=== PATIENT | female | born 1955 | race African-American/Black ===

== ENCOUNTER → 2019-02-07 13:57 | Outpatient (CLI) | payer MEDICARE, SELFPAY ==
--- NOTE | 2019-02-07 14:05 | VDLE_ITS ---
Reason For Study: pain and swelling RIGHT LEFT GSV is normal. GSV is normal. CFV is compressible, spontaneous, phasic, CFV is compressible, spontaneous, phasic, competent and demonstrates normal competent, and demonstrates normal augmentation. augmentation. FV is compressible, spontaneous, phasic, FV is compressible, spontaneous, phasic, competent and demonstrates normal competent and demonstrates normal augmentation. augmentation. POP V is compressible, spontaneous, phasic, POP V is compressible, spontaneous, phasic, competent and demonstrates normal competent and demonstrates normal augmentation. augmentation. T/P Trunk is compressible. T/P Trunk is compressible. PTV is compressible. PTV is compressible. RT PerV is compressible. LT PerV is compressible. Procedure Exam performed in department. The exam was diagnostic. A preliminary report was called and/or faxed to Dr. Gillespie. Interpretation Summary Deep veins of the lower extremities are bilaterally patent and compressible segmentally. There is no evidence of deep vein thrombosis on either side. Valvular competence appears intact within the proximal deep venous systems bilaterally. The greater saphenous veins appear bilaterally patent and compressible segmentally. Ordering Physician: ADRIEL GILLESPIE Referring Physician: ADRIEL GILLESPIE Performed By: Murtaza Washington RVT
== END ==
DX: M79.604 Pain in right leg (principal); M79.605 Pain in left leg; M79.89 Other specified soft tissue disorders; R60.0 Localized edema
CPT/HCPCS: 93970

== ENCOUNTER → 2020-04-08 | Outpatient (CLI) | payer MEDICARE, SELFPAY ==
--- NOTE | 2020-04-08 | FLU_PTH ---
PATIENT: ADELAIDA COMER LOC: [facility] U#:[id number] AGE/SX: 64/F ROOM: RE04/08/[address]: Dr. Ophelia Fraga MD : 1955 BED: DIS: 04/08/2020 SPEC #: [id number] RECD: 04/08/20 16:55 STATUS: AMANDA REYosef #: [id number] QI: 04/08/20 00:[address]: Ophelia Fraga DEPT: CYTOLOGY RECD BY: Garret Arredondo ENTERED: 04/09/20 08:49 SP TYPE: Fluid OTHR DR: [facility] Tissues: A - Thyroid gland, NOS B - Thyroid gland, NOS Procedures: Special Stain Group II Surgery Specimen Level IV Cytospin Fluid HEADER OPERATION: Ultrasound-guided fine needle aspiration of left thyroid PRE-OP DIAGNOSIS: Thyroid nodule TISSUE SUBMITTED: A - FNA left thyroid fluid for cytology, B - FNA left thyroid slides x8 DIAGNOSIS CYTOLOGY A. Left thyroid nodule, fluid for cytology, ultrasound-guided FNA (cytospin and cell block): Consistent with benign follicular/colloid nodule. B. Left thyroid nodule, ultrasound-guided FNA (smears): Consistent with benign follicular/colloid nodule. Adequate for evaluation. See comment. LUCINDA:vira 04/10/20 COMMENT Correlation with clinical, radiologic findings and appropriate follow up are necessary. CYTOLOGY STUDY Slides are reviewed. CYTOLOGY GROSS A - Received is 35 ml of pale red fluid labeled with the patient's name and and designated per the requisition as left thyroid. Submitted for cytology preparation including cell block. B - Received are eight smears labeled with the patient's name and designated per the requisition as left thyroid. Submitted for staining. / vira 04/09/20 TC:5 CPT: 01485, [id number], [id number]
== END | disposition home or self-care (01) ==
LOC: LABSPEC 04-09 07:59
PROVIDERS: Referring Provider Surgery; Visit Provider Surgery
DX: E04.1 Nontoxic single thyroid nodule (principal)
CPT/HCPCS: 88108; 88305; 88313